=== PATIENT | male | born 1975 | race Caucasian/White ===

== ENCOUNTER 2018-10-14 09:49 | Emergency (ER) | payer MEDICARE ==
[~2018-10-14] VITALS: Ht 172.7 cm; Wt 70.5 kg
[2018-10-14 10:00] VITALS: Ht 172.7 cm; Wt 70.5 kg
[2018-10-14] MEDS ORDERED: CLEOCIN HCL300 MG PO (11:01)
[2018-10-14] MEDS ORDERED: BACTRIM 400-801 TAB PO (11:01)
[2018-10-14 11:20] VITALS: BP 114/55
== END 2018-10-14 11:21 | disposition home or self-care (01) ==
LOC: D.ER 09:49
DX: Z48.02 Encounter for removal of sutures (principal); L03.113 Cellulitis of right upper limb; F17.200 Nicotine dependence, unspecified, uncomplicated; M79.601 Pain in right arm